=== PATIENT | male | born 1945 | race Caucasian/White ===

== ENCOUNTER → 2016-09-17 | Outpatient (CLI) | payer OTHER ==
[~2016-09-17] MED LIST: AMBIEN 5 MG TABL5 M1 PO; ASPIRIN EC81 M1 PO; CIALIS5 MG PO; PREDNISONE 20 M20 M1 PO
== END ==
LOC: MRI 14:24
DX: M40.294 Other kyphosis, thoracic region (principal); G95.11 Acute infarction of spinal cord (embolic) (nonembolic); M54.6 Pain in thoracic spine; N52.9 Male erectile dysfunction, unspecified; R20.0 Anesthesia of skin

== ENCOUNTER → 2019-05-04 | Outpatient (CLI) | payer OTHER ==
--- NOTE | 2019-05-04 11:56 | 2DMMODE ---
[facility] [place] [place] [address] 2 D/M-MODE ECHOCARDIOGRAM Name: CHONGBRAXTON HUNG [id number] Admission: 05/04/19 Attend Phys: Kody Tavarez Discharge: Date of : 49 Report #: [id number] THIS REPORT FOR: //name// APPROVED REPORT Study performed: 05/04/2019 11:15:01 EXAM: Comprehensive 2D, Doppler, and color-flow Echocardiogram Patient Location: Out-Patient Status: routine BSA: 2.10 HR: 54 bpm BP: 156/88 mmHg Rhythm: NSR/PVCs Other Information Study Quality: Good Indications Abnormal ECG 2D Dimensions RVDd: 36.80 mm IVSd: 10.61 (7-11mm) LVOT Diam: 23.45 (18-24mm) LVDd: 48.05 mm PWd: 11.15 (7-11mm) Ascending Ao: 45.30 (22-36mm) LVDs: 35.95 (25-40mm) Aortic Root: 38.88 mm Volumes Left Atrial Volume (Systole) Single Plane 4CH: 43.27 mL Single Plane 2CH: 57.55 mL LA ESV Index: 26.00 mL/m2 Aortic Valve AoV Peak Adan.: 1.97 m/s AO Peak Gr.: 14.37 mmHg LVOT Max P.26 mmHg AO Mean Gr.: 8.98 mmHg AO V2 Mean: 1.44 m/s LVOT Max V: 0.90 m/s AO V2 VTI: 49.10 cm ANNMARIE Vmax: 1.97 cm2 Mitral Valve E/A Ratio: 0.8 [facility] [place] [place] [address] 2 D/M-MODE ECHOCARDIOGRAM Name: BRAXTON SCHWARZ Room #: [facility]#: [id number] Admission: 05/04/19 Attend Phys: Kody Tavarez Discharge: Date of : 49 Report #: [id number] MV Decel. Time: 163.05 ms MV E Max Adan.: 0.89 m/s MV A Adan.: 1.08 m/s MV PHT: 47.28 ms IVRT: 115.34 ms Pulmonary Valve PV Peak Adan.: 1.25 m/s PV Peak Gr.: 6.25 mmHg Pulmonary Vein P Vein S: 0.72 m/s P Vein A: 0.31 m/s P Vein D: 0.37 m/s P Vein A Dur.: 147.6 msec P Vein S/D Ratio: 1.95 Tricuspid Valve TR Peak Adan.: 2.43 m/s RAP Estimate: 5.00 mmHg TR Peak Gr.: 24.00 mmHg PA Pressure: 29.00 mmHg Left Ventricle The left ventricle is normal size. There is normal LV segmental wall motion. There is normal left ventricular wall thickness. The overall left ventricular systolic function appears normal. LVEF is 55%. Mild diastolic dysfunction is present (impaired relaxation pattern). Right Ventricle The right ventricle is normal size. The right ventricular systolic function is normal. Atria The left atrium size is normal. The right atrium size is normal. Aortic Valve The aortic valve is normal in structure. Leaflets are moderately sclerotic. Mild aortic regurgitation. There is no aortic valvular stenosis. Mitral Valve The mitral valve is normal in structure. Trace mitral regurgitation. No evidence of mitral valve stenosis. Tricuspid Valve The tricuspid valve is normal in structure. Trace tricuspid regurgitation. Estimated PAP is 30mmHg. [facility] [address] [place] [address] 2 D/M-MODE ECHOCARDIOGRAM Name: BRAXTON SCHWARZ [facility] [id number] Admission: 05/04/19 Attend Phys: Kody Tavarez Discharge: Date of : 49 Report #: [id number] Pulmonic Valve The pulmonary valve is normal in structure. Mild pulmonic regurgitation. Great Vessels Aortic root is dilated at 3.9cm. 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 IVC is normal in size and collapses >50% with inspiration. Pericardium There is no pericardial effusion. <Conclusion> The left ventricle is normal size. There is normal left ventricular wall thickness. The overall left ventricular systolic function appears normal. Mild diastolic dysfunction is present (impaired relaxation pattern). The right ventricle is normal size. The left atrium size is normal. The aortic valve is normal in structure. Leaflets are moderately sclerotic. Mild aortic regurgitation. Trace mitral regurgitation. Trace tricuspid regurgitation. Estimated PAP is 30mmHg. 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 <ELECTRONICALLY SIGNED> By: Sunny French MD 05/04/19 [id number] Sunny French MD /INF
== END ==
LOC: CV 10:45
DX: I08.8 Other rheumatic multiple valve diseases (principal)

== ENCOUNTER 2020-01-19 18:23 | Emergency (ER) | payer OTHER ==
[~2020-01-19] VITALS: Ht 177.8 cm; Wt 95.7 kg
[2020-01-19] MEDS ORDERED: TAMSULOSIN HCL0.4 MG PO (18:49)
[2020-01-19] MEDS ORDERED: MYRBETRIQ50 MG PO (18:49)
[2020-01-19 18:50] LABS: URINE BILIRUBIN NEGATIVE (Negative); URINE BLOOD 2+ (Negative); URINE CLARITY CLEAR; URINE COLOR YELLOW; URINE GLUCOSE-RANDOM* NEGATIVE (Negative); URINE KETONES NEGATIVE (Negative); URINE LEUKOCYTES-REFLEX NEGATIVE (Negative); URINE NITRITE-REFLEX NEGATIVE (Negative); URINE PROTEIN (DIPSTICK) NEGATIVE (Negative); URINE SPECIFIC GRAVITY 1.015 (1.005-1.035); URINE UROBILINOGEN 0.2 E.U./dl (0.2-1.0)
[2020-01-19 18:57] LABS: SQUAMOUS None Seen /LPF (0-3); URINE RBC 3-10 Few /HPF (0-2); URINE WBC-REFLEX None Seen /HPF (0-5)
[2020-01-19 18:58] LABS: BACTERIA-REFLEX None Seen /HPF (None Seen); CASTS None Seen /LPF (None Seen); CRYSTALS None Seen /LPF (None Seen)
[2020-01-19 20:23] VITALS: BP 161/96
== END 2020-01-19 20:23 | disposition home or self-care (01) ==
LOC: ER 18:23
PROVIDERS: Emergency Medicine
DX: R33.9 Retention of urine, unspecified (principal); Z79.82 Long term (current) use of aspirin; Z79.899 Other long term (current) drug therapy

== ENCOUNTER 2021-05-12 21:17 | Emergency (ER) | payer OTHER ==
[~2021-05-12] VITALS: Ht 175.3 cm; Wt 99.8 kg
[~2021-05-12 21:17] MED LIST changes: +MYRBETRIQ50 MG PO; +TAMSULOSIN HCL0.4 MG PO
[2021-05-13 00:29] LABS: ABSOLUTE NEUTROPHILS 2.8 thou/uL (1.4-8.2); EOSINOPHILS 3.9 % (0.0-3.0); HEMATOCRIT 35.9 % (42.0-52.0); MCH 32.5 pg (26.0-34.0); MCHC 33.3 g/dL (28.0-37.0); MCV 97.8 fL (80.0-100.0); MONOCYTES 11.5 % (1.0-8.0); PLATELET COUNT 227 thou/uL (150-400); POLYS 50.6 % (36.0-66.0); RBC 3.67 mil/uL (4.50-6.00); RDW 14.1 % (10.5-14.5); WBC 5.6 thou/uL (4.0-11.0)
[2021-05-13 00:31] LABS: CREATININE 0.6 mg/dL (0.7-1.3); POTASSIUM 4.7 mmol/L (3.5-5.1)
[2021-05-13 00:39] LABS: ALBUMIN 3.8 g/dL (3.4-5.0); TOTAL BILIRUBIN 0.3 mg/dL (0.2-1.0); TOTAL PROTEIN 6.8 g/dL (6.4-8.2)
[2021-05-13 02:21] VITALS: BP 144/79
== END 2021-05-13 02:28 | disposition home or self-care (01) ==
LOC: ER 21:17
PROVIDERS: Emergency Medicine
DX: S90.212A Contusion of left great toe with damage to nail, initial encounter (principal); S90.211A Contusion of right great toe with damage to nail, initial encounter; Z85.46 Personal history of malignant neoplasm of prostate; Z98.890 Other specified postprocedural states; Z79.82 Long term (current) use of aspirin; Z79.899 Other long term (current) drug therapy; X58.XXXA Exposure to other specified factors, initial encounter; Y93.89 Activity, other specified; Y92.89 Other specified places as the place of occurrence of the external cause; Y99.8 Other external cause status